=== PATIENT | male | born 1975 | race Two or more races ===

== ENCOUNTER 2018-05-14 02:12 | Emergency (ER) | payer SELFPAY ==
[~2018-05-14] VITALS: Ht 162.6 cm; Wt 109.3 kg
[2018-05-14] MEDS ORDERED: EPINEPHrine HCL 1 MG/1 ML AMP SC ONE (03:15)
[2018-05-14] MEDS ORDERED: methylPREDNISolone SOD SUCC 125 MG/2 ML VL IM ONE (03:15)
[2018-05-14] MEDS ORDERED: diphenhdrAMINE HCL 12.5 MG/5 ML UD PO ONE (03:15)
[2018-05-14 04:00] VITALS: BP 128/84
[2018-05-14 04:23] LABS: Basophils # (auto) 0 uL; Eosinophils # (auto) 0 uL; Eosinophils % (auto) 0.2 % (0.0-7.0); Mean Corpuscular Volume 87.2 fL (80.0-100.0); Monocytes # (auto) 0.5 uL; Platelet Count (auto) 214 10^3/uL (140-450)
[2018-05-14 04:25] LABS: Basophils % (auto) 0.2 % (0.0-2.0); Hematocrit 52.6 % (41.0-53.0); Hemoglobin 17.8 g/dL (13.5-17.5); Lymphocytes # (auto) 2.9 uL; Lymphocytes % (auto) 24.2 % (10.0-50.0); Mean Corpuscular Hemoglobin 29.5 pg (28.0-32.0); Mean Corpuscular Hgb Conc. 33.9 g/dL (32.0-36.0); Monocytes % (auto) 4.2 % (0.0-12.0); Neutrophils # (auto) 8.6 uL; Neutrophils % (auto) 71.2 % (37.0-80.0); Nucleated Red Blood Cells % 0.1 %; Red Blood Cells 6.04 10^6/uL (4.5-5.90); Red Cell Distribution Width 13.2 % (11.8-14.3); White Blood Cell 12.1 10^3/uL (4.4-10.8)
[2018-05-14 04:33] LABS: Albumin 3.4 g/dL (3.4-5.0); BUN/Creatinine Ratio 15.8; Calcium 8.2 mg/dL (8.5-10.1)
[2018-05-14 04:36] LABS: Bilirubin, Total 0.6 mg/dL (0.2-1.0); Total Protein 7.1 g/dL (6.4-8.2)
== END 2018-05-14 05:29 | disposition home or self-care (01) ==
LOC: ER 02:14
DX: T78.40XA Allergy, unspecified, initial encounter (principal); E11.9 Type 2 diabetes mellitus without complications; I10 Essential (primary) hypertension; X58.XXXA Exposure to other specified factors, initial encounter
CPT/HCPCS: 36415; 80053; 85025; 96372; 99283; J0171; J2930